=== PATIENT | male | born 1955 | race Caucasian/White ===

== ENCOUNTER 2023-12-01 12:15 | Emergency (ER) | payer MEDICAID ==
[~2023-12-01] VITALS: Ht 172.7 cm; Wt 75.0 kg
[2023-12-01 12:27] VITALS: BP 130/87; PULSE 78; RESP 18; TEMP 98.5; O2SAT 99
[2023-12-01] MEDS ORDERED: GABA-532 MT (14:04)
[2023-12-01] MEDS ORDERED: ACYC200C31 MT (14:04)
[2023-12-02] MEDS ORDERED: ACYC200C31 MT (12:45)
[2023-12-02] MEDS ORDERED: GABA-529 MT (12:45)
== END 2023-12-01 14:41 | disposition home or self-care (01) ==
LOC: ER 13:45
DX: B02.9 Zoster without complications (principal)
CPT/HCPCS: 99283